=== PATIENT | female | born 1985 | race Caucasian/White ===

== ENCOUNTER 2020-09-03 16:24 | Outpatient (CLI) | payer OTHER ==
--- NOTE | 2020-09-04 10:13 | Ultrasound Report ---
PROCEDURE: Pelvic w/Transvaginal INDICATIONS: PELVIC PAIN TECHNIQUE: Real-time scanning was performed of the pelvic organs, with image documentation. Additional endovagi nal scanning was necessary due to incomplete visualization of the adnexal and endometrial structures by transabdominal scanning. COMPARISON: None. FINDINGS: No pathologic free abdominal or pelvic fluid. Uterus: Uterus is normal in size at 3.4 x 4.6 x 7.6 cm. The endometrium measures 8 mm in combined t hickness. No uterine mass. IUD is in normal expected position. Ovaries: Both ovaries normal in size and appearance. No ovarian or adnexal mass. IMPRESSION: Normal position of IUD. Otherwise normal study. Reviewed by: Johnnie Mendes MD on 09/04/2020 10:11 AM PDT Approved by: Johnnie Mendes MD on 09/04/2020 10:11 AM PDT Station ID: [id number]
== END 2020-09-03 16:25 | disposition home or self-care (01) ==
LOC: DI 16:24
PROVIDERS: ATTEND Obstetrics & Gynecology
DX: Z97.5 Presence of (intrauterine) contraceptive device (principal)

== ENCOUNTER 2020-09-16 08:00 | Outpatient (CLI) | payer OTHER ==
[2020-09-16 22:03] LABS: CHLAMYDIA TRACHOMATIS DNA NEGATIVE (NEGATIVE); NEISSERIA GONORRHOEAE DNA NEGATIVE (NEGATIVE); TRICHOMONAS VAGINALIS DNA NEGATIVE (NEGATIVE)
== END 2020-09-16 23:59 | disposition home or self-care (01) ==
LOC: LAB.R 08:00
PROVIDERS: ATTEND Obstetrics & Gynecology
DX: Z11.3 Encounter for screening for infections with a predominantly sexual mode of transmission (principal)
CPT/HCPCS: 87491; 87591; 87661